=== PATIENT | female | born 1950 | race Caucasian/White ===

== ENCOUNTER 2022-11-08 19:51 | Emergency (ER) | payer MEDICARE, BC ==
[2022-11-08] MEDS ORDERED: Ciprofloxacin 500 MG Tab PO ONE (20:57)
[2022-11-08 20:59] LABS: ANION GAP 10.6 meq/L (7-15)
[2022-11-08] MEDS ORDERED: Take Home: Ciprofloxacin HCl 500 MG, 6 Tab Pack PO ONE (21:11)
[2022-11-08] MEDS ORDERED: cloNIDine 0.1 MG Tab PO ONE (21:26)
== END 2022-11-08 23:15 | disposition home or self-care (01) ==
LOC: LL.ED 19:51
DX: N30.01 Acute cystitis with hematuria (principal); I16.0 Hypertensive urgency; Z79.82 Long term (current) use of aspirin; Z79.899 Other long term (current) drug therapy
CPT/HCPCS: 36415; 80053; 81001; 85025; 87086; 87088; 87186; 99283; A9270